=== PATIENT | male | born 1975 | race Hispanic/Latino ===

== ENCOUNTER 2017-06-05 19:39 | Emergency (ER) | payer MEDICAID, OTHER ==
[2017-06-05 19:57] VITALS: RESP 18; TEMP 98.3
--- NOTE | 2017-06-05 20:47 | C.PDOC ---
History Of Present Illness 41 year old male presents to the ED with complaints of right sided neck pain beginning two hours ago that is exacerbated by movement. Patient notes pain began after turning neck in the shower. He denies headache, dizziness, numbness , or weakness. Time Seen by Provider: 06/05/17 20:10 Chief Complaint (Nursing): Upper Extremity Problem/Injury History Per: Patient History/Exam Limitations: no limitations Onset/Duration Of Symptoms: Hrs (2 hours ) Current Symptoms Are (Timing): Still Present Quality Of Discomfort: "Pain" Previous Symptoms: None Associated Symptoms: None Exacerbating Factor(s): Movement Recent travel outside of the [place]: No Past Medical History Reviewed: Historical Data, Nursing Documentation, Vital Signs Vital Signs: Last Vital Signs Temp 98.3 F 06/05/17 19:55 Pulse 75 06/05/17 20:57 Resp 18 06/05/17 20:57 BP 122/75 06/05/17 20:57 Pulse Ox 97 06/05/17 21:07 - Medical History PMH: Back Problems Family History: States: Unknown Family Hx - Social History Hx Tobacco Use: No Hx Alcohol Use: Yes Hx Substance Use: No - Immunization History Hx Tetanus Toxoid Vaccination: Yes Hx Influenza Vaccination: No Hx Pneumococcal Vaccination: Yes Review Of Systems Constitutional: Negative for: Fever, Weakness, Malaise Eyes: Negative for: Pain, Vision Change ENT: Negative for: Ear Pain, Nose Congestion, Throat Pain Cardiovascular: Negative for: Chest Pain, Palpitations Respiratory: Negative for: Cough, Shortness of Breath Gastrointestinal: Negative for: Nausea, Vomiting, Abdominal Pain Musculoskeletal: Positive for: Neck Pain Neurological: Negative for: Weakness, Numbness, Headache, Dizziness Physical Exam - Physical Exam Appears: Non-toxic, No Acute Distress Skin: Warm, Dry Head: Atraumatic, Normacephalic Eye(s): bilateral: Normal Inspection, EOMI Nose: Normal Oral Mucosa: Moist Neck: No Midline Cervical Tenderness, Paracervical Tenderness, No Step Off Deformity, Other (Tenderness to right trapezius, with muscle spasm. Painful flexion to the fight. ) Chest: Symmetrical, No Deformity Cardiovascular: Rhythm Regular, No Murmur Respiratory: Normal Breath Sounds, No Accessory Muscle Use, No Rhonchi, No Wheezing Extremity: Normal ROM, No Tenderness, No Deformity, No Swelling Pulses: Left Radial: Normal Neurological/Psych: Oriented x3, Normal Speech Gait: Steady ED Course And Treatment O2 Sat by Pulse Oximetry: 97 (room air ) Progress Note: Patient was given valium and motrin. Reassessment Condition: Improved (patient reports neck pain mostly improved. patient has no fever and stable vital signs. rx given) Disposition Counseled Patient/Family Regarding: Diagnosis, Need For Followup, Rx Given - Disposition Referrals: Non [facility] Provider, [Primary Care Provider] - Disposition: HOME/ ROUTINE Disposition Time: 20:47 Condition: IMPROVED Additional Instructions: Take Motrin as needed for pain every 6 hours, with food to not upset stomach. Take muscle relaxant as needed every 8 hours, caution can make you drowsy. Follow up with orthopedic if pain persists over one week. Prescriptions: Cyclobenzaprine [Cyclobenzaprine HCl] 10 mg PO TID #21 tab Ibuprofen [Motrin] 600 mg PO Q8 #30 tab Instructions: Cervical Strain (DC) Forms: [employer] (Upper Sorbian) - POA Present On Arrival: None - Clinical Impression Clinical Impression: Strain of neck muscle - PA / CHANGE LEAD / Resident Statement MD/DO has reviewed & agrees with the documentation as recorded. - Scribe Statement The provider has reviewed the documentation as recorded by the Scribe Key Ponce All medical record entries made by the Brandonibdona were at my direction and personally dictated by me. I have reviewed the chart and agree that the record accurately reflects my personal performance of the history, physical exam, medical decision making, and the department course for this patient. I have also personally directed, reviewed, and agree with the discharge instructions and disposition.
[2017-06-05 20:59] VITALS: BP 122/75; PULSE 75
[2017-06-05 21:01] VITALS: O2SAT 97
== END 2017-06-05 21:00 | disposition home or self-care (01) ==
LOC: C.ER 19:39 → SUPCPDRO 19:39 → C.ER 21:00
DX: S16.1XXA Strain of muscle, fascia and tendon at neck level, initial encounter (principal); X50.0XXA Overexertion from strenuous movement or load, initial encounter; Y93.E1 Activity, personal bathing and showering; Y92.002 Bathroom of unspecified non-institutional (private) residence as the place of occurrence of the external cause

== ENCOUNTER 2018-01-31 07:07 | Emergency (ER) | payer MEDICAID, OTHER ==
[2018-01-31 07:12] VITALS: BP 129/86; PULSE 71; RESP 17; TEMP 98.3; O2SAT 98
[2018-01-31] MEDS ORDERED: Naproxen 550 mg Tab PO STA (07:35)
[2018-01-31] MEDS ORDERED: Naproxen 550 mg Tab PO ONE (07:53)
--- NOTE | 2018-01-31 08:17 | C.PDOC ---
History Of Present Illness 42-year-old male, presents to the emergency department with complaints of right sided lower back pain that started yesterday, after lifting a heavy object at work. States he took Naprosyn without relief. Patient denies any trauma, dysuria , or hematuria. Time Seen by Provider: 01/31/18 07:20 Chief Complaint (Nursing): Back Pain History Per: Patient History/Exam Limitations: no limitations Current Symptoms Are (Timing): Still Present Past Medical History Reviewed: Historical Data, Nursing Documentation, Vital Signs Vital Signs: Last Vital Signs Temp 98.3 F 01/31/18 07:10 Pulse 71 01/31/18 07:10 Resp 17 01/31/18 07:10 BP 129/86 01/31/18 07:10 Pulse Ox 98 01/31/18 08:18 - Medical History PMH: Back Problems Family History: States: No Known Family Hx - Social History Hx Tobacco Use: No Hx Alcohol Use: Yes Hx Substance Use: No - Immunization History Hx Tetanus Toxoid Vaccination: No Hx Influenza Vaccination: Yes Hx Pneumococcal Vaccination: No Review Of Systems Constitutional: Negative for: Fever Gastrointestinal: Negative for: Vomiting Genitourinary: Negative for: Dysuria, Hematuria Musculoskeletal: Positive for: Back Pain Skin: Negative for: Rash Neurological: Negative for: Weakness, Numbness Physical Exam - Physical Exam Appears: Well, Non-toxic, No Acute Distress Skin: Warm, Dry, No Rash Head: Atraumatic, Normacephalic Eye(s): bilateral: PERRL Nose: Normal Oral Mucosa: Moist Lips: Normal Appearing Neck: Normal ROM Cardiovascular: Rhythm Regular, No Murmur Respiratory: Normal Breath Sounds, No Accessory Muscle Use Back: Paraspinal Tenderness (right, lumbar) Extremity: Normal ROM, No Deformity, No Swelling Neurological/Psych: Oriented x3, Normal Speech ED Course And Treatment O2 Sat by Pulse Oximetry: 98 (RA) Pulse Ox Interpretation: Normal Progress Note: Patient treated with PO Naproxen and PO Flexeril. Reassessment Condition: Improved (Patient reassessed, states he feels much better, On exam, pt is resting comfortably, and appears well. Patient will be discharged home, and understand he should return to ED if symptoms worsen. Rx for Naproxen and Flexeril given. Pt instructed to f.u with PMD/clinic in 1-2 days) Disposition Counseled Patient/Family Regarding: Diagnosis, Need For Followup, Rx Given - Disposition Referrals: [facility] [Outside] Disposition: HOME/ ROUTINE Disposition Time: 08:20 Condition: STABLE Additional Instructions: FOLLOW UP WITH YOUR DOCTOR/CLINIC IN 1-2 DAYS USE MEDICATIONS NEEDED RETURN TO ER IF SYMPTOMS WORSEN Prescriptions: Cyclobenzaprine [Flexeril] 10 mg PO BID PRN #15 tab PRN Reason: Muscle Spasm Naproxen [Naprosyn] 1 tab PO BID PRN #25 tab PRN Reason: Pain Instructions: Low Back Pain (DC) Forms: [employer] (Georgian), Work Excuse Print Language: [place] LUCIAN - Clinical Impression Clinical Impression: Low back pain - Scribe Statement The provider has reviewed the documentation as recorded by the Scribe (Palomo Barth) All medical record entries made by the Scribe were at my direction and personally dictated by me. I have reviewed the chart and agree that the record accurately reflects my personal performance of the history, physical exam, medical decision making, and the department course for this patient. I have also personally directed, reviewed, and agree with the discharge instructions and disposition.
== END 2018-01-31 08:35 | disposition home or self-care (01) ==
LOC: C.ER 07:07
DX: M54.5 Low back pain (principal)

== ENCOUNTER 2018-07-18 08:58 | Emergency (ER) | payer OTHER ==
[2018-07-18 09:13] VITALS: BP 132/80; PULSE 71; RESP 18; TEMP 98.6; O2SAT 99
--- NOTE | 2018-07-18 10:16 | CT ---
Date of service: 07/18/2018 PROCEDURE: CT HEAD WITHOUT CONTRAST. HISTORY: PERSISTENT HEADACHES, NEW ONSET COMPARISON: None available.. TECHNIQUE: Contiguous helical/transaxial sections were obtained through the head/brain without intravenous contrast. Radiation dose: Total exam DLP = 1044.4 mGy-cm. This CT exam was performed using one or more of the following dose reduction techniques: Automated exposure control, adjustment of the mA and/or kV according to patient size, and/or use of iterative reconstruction technique. FINDINGS: HEMORRHAGE: No intracranial hemorrhage. BRAIN: No mass effect or edema. No atrophy or chronic microvascular ischemic changes. VENTRICLES: Unremarkable. No hydrocephalus. CALVARIUM: Unremarkable. PARANASAL SINUSES: Opacification of multiple left with extension superiorly into the left aspect of the frontal sinus. There is also opacification of 1 or 2 right sided ethmoid air cells MASTOID AIR CELLS: Unremarkable as visualized. No inflammatory changes. OTHER FINDINGS: In situ left eyebrow ring IMPRESSION: No acute intracranial hemorrhage. There is opacification of multiple left-sided ethmoid air cells extending superiorly into the left aspect of the frontal sinus. Minor mucosal thickening or 2 right-sided ethmoid air cells.
--- NOTE | 2018-07-18 10:26 | C.PDOC ---
History Of Present Illness 42-year-old male presents to the emergency department with complaints of intermittent headaches ongoing for the past 5-6 months. He states that he sometimes feels lightheaded, particularly when going from sitting to standing. Patient denies visual changes, facial droop, slurred speech, extremity weakness, sensory changes, chest pain, palpitations, dyspnea or any other associated symptoms. He denies history of headaches prior to 6 months ago. Time Seen by Provider: 07/18/18 09:10 Chief Complaint (Nursing): Headache History Per: Patient History/Exam Limitations: no limitations Onset/Duration Of Symptoms: Persistent Current Symptoms Are (Timing): Gone Severity: Moderate Quality: "Pain" Preceeding Symptoms: denies: Visual Disturbances, Known Migraine Symptoms Associated Symptoms: denies: Photophobia, Blurred Vision, Nausea, Vomiting, Extremity Weakness Past Medical History Reviewed: Historical Data, Nursing Documentation, Vital Signs Vital Signs: Last Vital Signs Temp 98.6 F 07/18/18 09:11 Pulse 71 07/18/18 09:11 Resp 18 07/18/18 09:11 BP 132/80 07/18/18 09:11 Pulse Ox 99 07/18/18 09:11 - Medical History PMH: Back Problems Family History: States: No Known Family Hx - Social History Hx Tobacco Use: No Hx Alcohol Use: Yes Hx Substance Use: No - Immunization History Hx Tetanus Toxoid Vaccination: No Hx Influenza Vaccination: Yes Hx Pneumococcal Vaccination: No Review Of Systems Constitutional: Negative for: Fever, Chills Cardiovascular: Negative for: Chest Pain, Palpitations Respiratory: Negative for: Shortness of Breath Gastrointestinal: Negative for: Nausea, Vomiting Neurological: Positive for: Headache. Negative for: Weakness, Numbness, Incoordination, Change in Speech, Confusion, Seizures, Altered Mental Status, Dizziness Physical Exam - Physical Exam Appears: Well, Non-toxic, No Acute Distress Skin: Warm, Dry, No Rash Head: Atraumatic, Normacephalic Eye(s): bilateral: Normal Inspection, PERRL, EOMI Oral Mucosa: Moist Neck: Normal, Normal ROM, Supple Cardiovascular: Rhythm Regular Respiratory: Normal Breath Sounds, No Rales, No Rhonchi, No Stridor Extremity: Normal ROM, No Deformity Neurological/Psych: Oriented x3, Normal Speech, Normal Cognition, Normal Cranial Nerves, No Cerebellar Signs, Normal Motor, Normal Sensation, Normal Reflexes Gait: Steady ED Course And Treatment O2 Sat by Pulse Oximetry: 99 (RA) Pulse Ox Interpretation: Normal - CT Scan/US CT HEAD Other Rad Studies (CT/US): Read By Radiologist, Radiology Report Reviewed CT/US Interpretation: Accession No. : [id number]. Patient Name / ID : YAMILETH HOFFMANN / [id number]. Exam Date : 07/18/2018 09:52:43 ( Approved ). Study Comment : Sex / Age : M / 42Y. Creator : Micah Kevin. Dictator : Familia Loza MD. Strategy Director : Atomic Process Engineer : Familia Loza MD. Approver2 : Report Date : 07/18/2018 10:06:28. My Comment : . Date of service: 07/18/2018. PROCEDURE: CT HEAD WITHOUT CONTRAST. HISTORY: PERSISTENT HEADACHES, NEW ONSET. COMPARISON: None available.. TECHNIQUE: Contiguous helical/transaxial sections were obtained through the head/brain without intravenous contrast. Radiation dose: Total exam DLP = 1044.4 mGy-cm. This CT exam was performed using one or more of the following dose reduction techniques: Automated exposure control, adjustment of the mA and/or kV according to patient size, and/or use of iterative reconstruction technique. FINDINGS: HEMORRHAGE: No intracranial hemorrhage. BRAIN: No mass effect or edema. No atrophy or chronic microvascular ischemic changes. VENTRICLES: Unremarkable. No hydrocephalus. CALVARIUM: Unremarkable. PARANASAL SINUSES: Opacification of multiple left with extension superiorly into the left aspect of the frontal sinus. There is also opacification of 1 or 2 right sided ethmoid air cells. MASTOID AIR CELLS: Unremarkable as visualized. No inflammatory changes. OTHER FINDINGS: In situ left eyebrow ring. IMPRESSION: No acute intracranial hemorrhage. There is opacification of multiple left-sided ethmoid air cells extending superiorly into the left aspect of the frontal sinus. Minor mucosal thickening or 2 right-sided ethmoid air cells. Progress Note: Patient with new onset of persistent headaches x 5-6 months, wiith no history of headaches prior to that time oneydajames. CT head ordered and reviewed. No active headache/other symptoms at this time. Reevaluation Time: 10:30 Reassessment Condition: Improved (Patient resting comfortably, currently asymptomatic. CT head shows opacification of ethmoid cells. Patient denies purulent nasal discharge, fevers, history of allergies/rhinorrhea. He was instructed to follow up with neurology within 1 week for further eval of his headaches. He understands he should return to ED if symptoms worsen.) Disposition Counseled Patient/Family Regarding: Studies Performed, Diagnosis, Need For Followup - Disposition Referrals: Varun Yuan MD [Staff Provider] - Shaquille Carey MD [Staff Provider] - Disposition: HOME/ ROUTINE Disposition Time: 10:30 Condition: STABLE Additional Instructions: FOLLOW UP WITH NEUROLOGY WITHIN 1 WEEK RETURN TO ER IF YOUR SYMPTOMS WORSEN Instructions: Headache, Adult (DC) Forms: [employer] (Estonian), Work Excuse Print Language: EMIRATI - POA Present On Arrival: None - Clinical Impression Clinical Impression: Headache - Scribe Statement The provider has reviewed the documentation as recorded by the Scribe (Palomo Barth) Provider Attestation: All medical record entries made by the Scribe were at my direction and personally dictated by me. I have reviewed the chart and agree that the record accurately reflects my personal performance of the history, physical exam, medical decision making, and the department course for this patient. I have also personally directed, reviewed, and agree with the discharge instructions and disposition.
== END 2018-07-18 10:40 | disposition home or self-care (01) ==
LOC: C.ER 08:58
DX: R51 Headache (principal)